=== PATIENT | male | born 1990 | race Caucasian/White ===

== ENCOUNTER 2016-05-07 14:47 | Emergency (ER) | payer MEDICAID ==
[~2016-05-07] VITALS: Ht 165.1 cm; Wt 61.4 kg
[2016-05-07] MEDS ORDERED: IBUPROFEN 600 MG TABLET PO ONE (15:30)
[2016-05-07] MEDS ORDERED: LIDOCAINE HCL BUFFERED 1% 20 ML VIAL INJ ONE (15:30)
[2016-05-07] MEDS ORDERED: POVIDONE-IODINE 10% 120 ML SOLUTION TP ONE (15:30)
[2016-05-07 17:01] VITALS: BP 123/71
== END 2016-05-07 17:16 | disposition home or self-care (01) ==
LOC: EMS 14:49 → EDBD 14:49 → EMS 17:16
DX: S60.211A Contusion of right wrist, initial encounter (principal); S20.212A Contusion of left front wall of thorax, initial encounter; L02.512 Cutaneous abscess of left hand; F11.90 Opioid use, unspecified, uncomplicated; F17.210 Nicotine dependence, cigarettes, uncomplicated; X58.XXXA Exposure to other specified factors, initial encounter; Y93.89 Activity, other specified; Y92.89 Other specified places as the place of occurrence of the external cause; Y99.8 Other external cause status
CPT/HCPCS: 10060; 71010; 73110; 73130; 99284; J3490; 12002